=== PATIENT | female | born 1960 | race Caucasian/White ===

== ENCOUNTER → 2017-10-22 10:50 | Outpatient (CLI) | payer OTHER, SELFPAY ==
--- NOTE | 2017-10-22 10:51 | MM_ITS ---
MM Dig screening mamm BI w/CAD ORDERING PHYSICIAN : Joce Gutierrez MD PATIENT AGE: 56 years GENDER: Female COMPARISON: January 2016, June 2013, November 2010 INDICATION: ITS.REASON: Screening TECHNIQUE: Standard CC and MLO images were obtained. R2 CAD reviewed. FINDINGS: . Moderate scattered fibroglandular elements moderately dense heterogeneous breast. With similar architecture. No significant new findings. No dominant mass nor suspicious calcifications. RIGHT BREAST: Overall architecture is fairly stable. There are some additional areas of calcification at the deep right breast. These are fairly punctate with breathing seen at the posterior right breast labeled a most notable on the cc view. Most likely reflecting adenosis is a seem to be scattered on the MLO view . However given these calcifications become more evident since prior studies a would suggest a magnification spot view CC and MLO of these areas to better delineate and characterize Is also small area labeled B at the deep breast on MLO view which I believe is merely summation shadow and can be be addressed on these follow-up additional views as well LEFT BREAST:No change in the left breast. Follow-up in one year ----IMPRESSION: ----- 1. Right breast. Small grouping of calcifications deep right breast Labeled A.-most likely reflecting benign adenosis but would benefit from magnification spot views.. Other tiny very faint barely perceptible calcifications seen elsewhere scattered elsewhere deep right breast likely early adenosis calcifications as well Small area of density labeled B deep right breast on MLO view most likely summation shadow but should also be addressed these follow-up spot images as well 2. Left breast. Stable. Follow-up in one year BI-RADS Category: 0 Need Additional Imaging Evaluaiton. RECOMMENDED FOLLOW-UP: IMM - IMMEDIATE FOLLOW-UP RECOMMENDED Magnification Spot views right breast (A letter has been sent to the patient regarding results of the study.)
== END ==
PROVIDERS: PCP Internal Medicine Adolescent Medicine; Visit Provider Obstetrics & Gynecology
DX: Z12.31 Encounter for screening mammogram for malignant neoplasm of breast (principal)
CPT/HCPCS: 77067

== ENCOUNTER → 2017-11-05 12:45 | Outpatient (CLI) | payer OTHER, SELFPAY ==
--- NOTE | 2017-11-05 12:47 | MM_ITS ---
MM Dig mamm DX unilat RT CAD INDICATION: Follow-up abnormal mammogram ORDERING PHYSICIAN: Joce Gutierrez MD PATIENT AGE: 57 years COMPARISON: 10/22/2017, 02/12/2016 TECHNIQUE: Magnification views FINDINGS: The asymmetric density in the deep aspect of the right breast does appear to compress out on the focal spot compression view. There is a cluster of calcifications once again noted in the deep central aspect of the right breast. These are indeterminate. These are not highly suspicious and may very well represent adenosis. Suggest attempted stereotactic biopsy. IMPRESSION: Mildly suspicious cluster of calcifications in the central deep aspect of the right breast BI-RADS Category: 4 Suspicious Abnormality-Biopsy Considered RECOMMENDED FOLLOW-UP: BIO - BIOPSY RECOMMENDED (A letter has been sent to the patient regarding results of the study.)
== END ==
PROVIDERS: PCP Internal Medicine Adolescent Medicine; Visit Provider Obstetrics & Gynecology
DX: R92.8 Other abnormal and inconclusive findings on diagnostic imaging of breast (principal)
CPT/HCPCS: 77065

== ENCOUNTER → 2017-12-30 09:37 | Outpatient (CLI) | payer OTHER, SELFPAY ==
--- NOTE | 2017-12-30 | MM_ITS ---
MM stereotactic loc RT, MM Dig mamm DX unilat RT CAD ORDERING PHYSICIAN: Joce Gutierrez MD PATIENT AGE: 57 years Comparison: 11/05/2017 Limited focused H&P: HISTORY: Breast calcifications in the central aspect of the right breast PROCEDURE: The patient was placed on the stereotactic table and the abnormality was localized in the most appropriate projection. The breast was prepped in the routine manner, with sterile prep and the overlying skin anesthetized. A 3 to 4 mm skin incision was performed and the 9 gauge sorus vacuum-assisted core biopsy needle was advanced to the region of the calcification. Pre- and post fire images were obtained. After adequate positioning relative to the calcifications was ensured, multiple biopsies were obtained in the region of the calcifications specifically. The core biopsies obtained were sent for specimen mammography. After the calcifications were indeed identified on the specimen mammogram, the procedure was terminated. The patient tolerated the procedure well without complications. A tiny titanium nonferromagnetic MicroMark was positioned through the mammotome needle into the biopsy site. Pathology: Focal atypical ductal hyperplasia within a background of proliferative fibrocystic change. Intraluminal calcifications. Negative for in situ or invasive carcinoma IMPRESSION: Successful stereotactic vacuum-assisted core biopsy of the Right breast calcifications showing focal atypical ductal hyperplasia.. Excisional biopsy is suggested. SPECIMEN RADIOGRAPH: The mammographically evident calcifications from the prior study are currently evident within the Jeffrey dish and within the specimens obtained during mammotome procedure. This is considered an adequate specimen and the procedure was terminated. IMPRESSION: Successful removal of described breast calcifications. Recommendations: Surgical consult and excisional biopsy in patients with atypical ductal hyperplasia Right BREAST MAMMOGRAM: Compared to the prior study, the previously noted calcification have been removed. A small MicroMark clip was inserted into the region of the calcifications in the central aspect of the right breast. There is evidence of soft tissue changes in the region of the biopsy was soft tissue gas and edema. IMPRESSION: 1. Adequate placement of the MicroMark clip postbiopsy. 2. Postbiopsy changes within the right breast.
== END ==
PROVIDERS: PCP Internal Medicine Adolescent Medicine; Visit Provider Obstetrics & Gynecology
DX: R92.8 Other abnormal and inconclusive findings on diagnostic imaging of breast (principal)
CPT/HCPCS: 19081; 77065

== ENCOUNTER → 2018-03-22 09:44 | Outpatient (CLI) | payer OTHER, SELFPAY ==
[2018-03-22 10:01] LABS: Basophils # 0.1 K/mm3 (0-0.2); Basophils % 0.8 % (0.1-2.0); Eosinophils # 0.1 K/mm3 (0.0-0.4); Eosinophils % 2.3 % (0.1-12.0); Lymphocytes # 1.8 K/mm3 (0.7-4.5); Lymphocytes % 29.5 % (10-50); Mean Corpuscular HGB Conc 34.2 g/dL (31.8-35.4); Mean Corpuscular Hemoglobin 28.9 pg (27.0-31.2); Mean Corpuscular Volume 84.6 fl (81-99); Mean Platelet Volume 7.5 fl (7.4-10.4); Monocytes # 0.3 K/mm3 (0.1-1.0); Monocytes % 4.9 % (1.7-9.3); Neutrophils # 3.8 K/mm3 (1.8-7.8); Neutrophils % 62.6 % (37.0-80.0); Platelet Count 255 K/mm3 (142-424); Red Cell Distribution Width 13.1 % (11.5-17.5); White Blood Count 6.1 K/mm3 (4.8-10.8)
[2018-03-22 10:49] LABS: Anion Gap 19.6 mEq/L (5-15); Blood Urea Nitrogen 11 mg/dL (7-18); Calcium 8.8 mg/dL (8.5-10.1); Carbon Dioxide 21 mmol/L (21.0-32.0); Chloride 103 mmol/L (98-107); Creatinine,Serum 0.78 mg/dL (0.55-1.02); Estimated Glomerular Filt Rate 76 ml/min (>60); GFR (African American) 92 ML/MIN (>60); Glucose 233 mg/dL (74-106); Potassium 3.6 mmoL/L (3.5-5.1); Sodium 140 mmol/L (136-145)
== END ==
PROVIDERS: Visit Provider Surgery
DX: N60.91 Unspecified benign mammary dysplasia of right breast (principal)
CPT/HCPCS: 36415; 80048; 85025; 93005

== ENCOUNTER 2018-03-25 08:28 | Observation (INO) ==
--- NOTE | 2018-03-25 09:26 | Progress Note ---
[facility] Anesthesia Checklist - Patient Identification Patient Identification: Arm Band, Verbal (Name & ) - Structural Data Admitted From: Home Planned Operative Procedure/s: lumpectomy Consent for Planned Operative Procedure(s) Verified: Yes Verified Documents: History and Physical - NPO Status Verified Time NPO: 00:00 - Additional verifications Patient : No Anesthesia Reactions: No Hx Blood Transfusions: No Blood Transfusion Reaction: No Cephalosporin Allergy: No Previous Colonoscopy: No - Cardiovascular Assessment Heart Sounds: S1 & S2 Pulse Strength: Baseline Pulse Rhythm: Regular Peripheral Edema: No - Airway Assessment C-Spine Mobility Assessed: Yes TMJ Mobility Assessed: Yes Dentition: Good Dentition - Neurological Assessment Level of Consciousness: Awake, Alert, Appropriate Hx Seizures: No Numbness or tingling in extremities: No - Anesthesia Plan Anesthesia Risk discussed: Yes Anesthesia Plan: Verified ASA Class: II Anesthesia Type: General [facility] History I have reviewed the patient's past medical history: Yes Medical History: Denies:: Cancer, Diabetes Mellitus Type 1, Diabetes Mellitus Type 2, Internal Pacemaker, MRSA, Seizures Have you ever received a pneumonia vaccine?: No Have you received a flu vaccine this season?: Yes Other Medical History: Reports: Other. Denies: Blood Transfusion Reaction Laterality Cases: Right: Breast Biopsy Other Surgeries: Yes: No Previous Surgery, Other. No: Pacemaker Amputation: No Fractures: No - *Social History Educational Level: Completed High School Smoking Status: Never smoker Alcohol Intake: never Alcohol Intake Frequency:: other Substance Use Type: denies use Occupational Status: employed Household Members: spouse Travel in the last 8 weeks: None - Psychiatric History Expresses thoughts of harming self/others: None Suicide Plan Description: No Plan *Family Hx:: Cancer WEIGHT REDUCTION SPECIALIST history: Non-contributory
--- NOTE | 2018-03-25 12:15 | Operative Note ---
Date of procedure: 03/25/18 Pre-op Diagnosis:: Right breast atypical ductal hyperplasia Post-op Diagnosis:: Same Procedure performed:: Needle-localized excisional biopsy of right breast lesion (atypical ductal hyperplasia) Surgeon:: Azar Hay MD Anesthesia: LMA Estimated blood loss (mL): 15 Operative findings:: Complete excision of target lesion confirmed radiographically Operative note:: After informed consent was obtained the patient was taken to the radiology suite where a localization needle was placed. Please see separate radiology report for detail. She was then transferred to the operating room and placed in the supine position. General anesthesia with laryngeal mask airway was achieved. The right breast was prepped and draped in a sterile fashion. Additional alcohol preparation of the localization needle was accomplished. After infiltration of local anesthetic a slightly curvilinear incision was made at the site of the localization needle exit. The deep subcutaneous tissue was sharply dissected as the target was approached. The surrounding tissue was sharply excised with Metzenbaum scissors. The lesion was excised in toto and passed off for pathologic evaluation after being marked for margin. Dyed suture was utilized to nilay the superficial and deep margins (short superficial/long deep). Non-dyed suture was then utilized to nilay the superior and lateral margins (short superior/long lateral). Electrocautery was utilized to achieve hemostasis. The deep subcutaneous tissue was reapproximated with non-dyed 0 Vicryl and skin was closed with 4-0 Monocryl in a running subcuticular fashion. Steri-Strips were applied. The patient's anesthetic agents were reversed and she was transferred to recovery after removal of her laryngeal mask airway. Specimen radiographs were evaluated and appropriate excision of the target was confirmed. Condition: stable Disposition: PACU Specimens:: Right breast lesion Complications:: No immediate
--- NOTE | 2018-03-25 12:17 | Progress Note ---
[facility] Anesthesia Record Part I Intake, IV Amount: 750 Estimated blood loss (mL): 10 Urine output (mL): 0 Blood Products used (#): none Blood Pressure: 127/70 SaO2: 94 Pulse Rate: 98 Respiratory Rate: 20 Temperature: 98.0 F Patient is:: Drowsy, Stable Stable to PACU at:: 12:16
--- NOTE | 2018-03-25 12:18 | Progress Note ---
[facility] Anesthesia Record Part II Discharge Time: 12:46 Destination: Surgical Day Care (OP Surgery) PACU nurse assessment reviewed?: Yes Patient Condition:: Good Anesthesia Complications:: None Swallowing reflex intact?: Yes Cyanosis?: No
[2018-03-26 06:13] LABS: Basophils % 0.2 % (0.1-2.0); Eosinophils % 0.4 % (0.1-12.0); Hematocrit 37.8 % (37.0-47.0); Hemoglobin 12.7 g/dL (12.2-16.2); Lymphocytes # 2.1 K/mm3 (0.7-4.5); Lymphocytes % 21.7 % (10-50); Mean Corpuscular HGB Conc 33.7 g/dL (31.8-35.4); Mean Corpuscular Hemoglobin 28.9 pg (27.0-31.2); Mean Corpuscular Volume 85.8 fl (81-99); Mean Platelet Volume 7.8 fl (7.4-10.4); Monocytes # 0.6 K/mm3 (0.1-1.0); Monocytes % 6.5 % (1.7-9.3); Neutrophils % 71.2 % (37.0-80.0); Platelet Count 244 K/mm3 (142-424); Red Blood Count 4.41 M/mm3 (4.20-5.40); Red Cell Distribution Width 13.3 % (11.5-17.5); White Blood Count 9.8 K/mm3 (4.8-10.8)
--- NOTE | 2018-03-26 06:31 | Progress Note ---
Subjective Patient reports: feels better Exam Vital signs and Labs for Last 24 Hours: Temp Pulse Resp BP Pulse Ox 97.9 F 86 16 103/51 L 96 03/26/18 04:00 03/26/18 04:00 03/26/18 04:00 03/26/18 04:00 03/26/18 04:00 Laboratory Results - last 24 hr 03/26/18 05:45: WBC 9.8, RBC 4.41, Hgb 12.7, Hct 37.8, MCV 85.8, MCH 28.9, MCHC 33.7, RDW 13.3, Plt Count 244, MPV 7.8, Neut % (Auto) 71.2, Lymph % (Auto) 21.7, Petroleum % (Auto) 6.5, Eos % (Auto) 0.4, Baso % (Auto) 0.2, Neut # (Auto) 7.0, Lymph # (Auto) 2.1, Petroleum # (Auto) 0.6, Eos # (Auto) 0.0, Baso # (Auto) 0.0 I & O for Last 24 hours: Intake & Output 03/23/18 03/24/18 03/25/18 03/26/18 11:59 11:59 11:59 11:59 Intake Total 850 / 850 Balance 850 / 850 Weight 348 lb 5.286 oz 155 lb 6 oz - Constitutional no acute distress - Routine Chest/Breast/Axilla Exam Comments: no expansion of hematoma - *Routine Respiratory Exam Absent: respiratory distress Progress Note: A&P (1) Atypical ductal hyperplasia of right breast Status: Acute Assessment and plan: Daughter hematoma acutely developing after ambulation postoperatively. Currently stable and no sign of hematoma expansion. Advance diet Increase ambulation Likely discharge later today if she remains stable Current Visit: Yes
--- NOTE | 2018-03-26 07:50 | Pharmacy Consult Notes ---
[facility] Pharmacy VTE Monitoring - Patient Demographics Admission date: 03/25/18 Report Date: 03/26/18 Time: 07:50 Allergies/Adverse Reactions: Patient Allergies No Known Allergies Allergy (Verified 03/17/18 10:35) Height: 1.63 m Weight: 70.477 kg Patient Problems: Current Active Problems Atypical ductal hyperplasia of right breast (Acute) - VTE Risk Labs: VTE Related Lab Results Hgb 12.7 g/dL (12.2-16.2) 03/26/18 05:45 Hct 37.8 % (37.0-47.0) 03/26/18 05:45 Plt Count 244 K/mm3 (142-424) 03/26/18 05:45 Was VTE Risk Assessment Performed: Yes VTE Score: 2 - Prophylaxis VTE Prophylaxis Ordered?: Yes Types of VTE Prophylaxis: IPCS Thigh High Location of Applied Device: Bilateral Lower Extremeties - VTE Diagnosis Confirmed Treatment or plan recommended: Continue Current Treatment
--- NOTE | 2018-03-26 14:49 | Discharge Summary ---
General - General Admission date:: 03/25/18 Discharge date: 03/26/18 HPI HPI: This is a 57-year-old female who underwent needle localized excisional biopsy of right breast lesion (atypical ductal hyperplasia). She initially progressed well in the immediate postoperative timeframe. Prior to discharge she began to increase her ambulation and developed a moderate right breast hematoma. Immediate compression was successful and there was no sign of ongoing expansion. She was admitted for ongoing observation. Hospital Course Hospital Course: The patient convalesced well. She had no sign of ongoing blood loss. She remained afebrile with stable normal vital signs and was deemed appropriate for discharge on the afternoon of postoperative day 1. Objective Vital signs: Temp Pulse Resp BP Pulse Ox 97.9 F 88 16 121/64 100 03/26/18 12:00 03/26/18 12:00 03/26/18 12:00 03/26/18 12:00 03/26/18 12:00 no acute distress - *Routine HEENT Exam Head: Present: normocephalic, atraumatic - *Routine Neck Exam Present: full ROM - Routine Chest/Breast/Axilla Exam Comments: Moderate right breast hematoma postoperatively with no sign of active expansion. - *Routine Respiratory Exam Absent: respiratory distress - *Routine Cardiovascular Exam Present: RRR - *Routine Abdominal Exam Present: soft - *Routine Extremities Exam Present: full ROM - Routine Back/Spine/Pelvis Exam Back/Spine: Present: full ROM - *Routine Skin Exam Present: intact - *Routine Neurological Exam Present: alert, oriented X3 - Routine Psychiatric Exam Present: normal affect Results Labs on day of discharge: Labs from last 24 hours 03/26/18 05:45 WBC 9.8 RBC 4.41 Hgb 12.7 Hct 37.8 MCV 85.8 MCH 28.9 MCHC 33.7 RDW 13.3 Plt Count 244 MPV 7.8 Neut % (Auto) 71.2 Lymph % (Auto) 21.7 Robertson % (Auto) 6.5 Eos % (Auto) 0.4 Baso % (Auto) 0.2 Neut # (Auto) 7.0 Lymph # (Auto) 2.1 Robertson # (Auto) 0.6 Eos # (Auto) 0.0 Baso # (Auto) 0.0 DS: Diagnosis - Discharge Diagnosis (1) Atypical ductal hyperplasia of right breast Status: Acute Problem details: Delayed postoperative hematoma with no sign of ongoing blood loss/expansion. Discharge Plan - Patient Discharge Instructions ACTIVITY: Ambulate as tolerated DIET: advance to your usual diet - Follow up Plan Follow up with: Azar Hay MD [Staff Physician] - 1 week Disposition: Home, Self-Fpc Medications: Home Medications Medication Instructions Recorded Confirmed Type biotin 1 mg capsule 1 mg PO DAILY 06/04/17 03/26/18 History black cohosh 200 mg capsule 200 mg PO DAILY 06/04/17 03/26/18 History cholecalciferol (vitamin D3) 400 400 unit PO DAILY 06/04/17 03/26/18 History unit capsule lansoprazole 15 mg capsule,delayed 30 mg PO BID 06/04/17 03/25/18 History release tqqphblsydtx-Aa-erpy-minerals 1 tab PO DAILY 06/04/17 03/25/18 History tablet zinc gluconate 100 mg tablet 100 mg PO DAILY tab 06/04/17 03/26/18 History Estrogen,Con/M-Progest Acet 1 tab PO DAILY 03/25/18 03/26/18 History [Prempro 0.625-2.5 mg Tablet] Prescriptions/Medication Reconciliation: Continue luutvftvhymx-Zt-asth-minerals tablet 1 tab PO DAILY biotin 1 mg capsule 1 mg PO DAILY cholecalciferol (vitamin D3) 400 unit capsule 400 unit PO DAILY lansoprazole 15 mg capsule,delayed release 30 mg PO BID zinc gluconate 100 mg tablet 100 mg PO DAILY tab black cohosh 200 mg capsule 200 mg PO DAILY Estrogen,Con/M-Progest Acet [Prempro 0.625-2.5 mg Tablet] 1 tab PO DAILY
== END 2018-03-26 15:28 | disposition home or self-care (01) ==
LOC: OR 08:28 → 2ND 16:11 → INTOOBSV 16:11
PROVIDERS: ADMIT Surgery; ATTEND Surgery
CPT/HCPCS: 19281; 36415; 85025; 96374; G0378; J2405

== ENCOUNTER → 2019-04-07 09:43 | Outpatient (CLI) | payer OTHER, SELFPAY ==
--- NOTE | 2019-04-07 09:46 | MM_ITS ---
PROCEDURE: MM DIG SCREENING MAMM BI W/CAD CLINICAL INDICATION: SCREENING There is a history of breast cancer patient's maternal cousin. There has been a previous biopsy right breast for benign disease. COMPARISON: DXRT MM Dig mamm DX unilat RT CAD from 11/05/2017 STRT MM stereotactic loc RT from 12/30/2017 NLRT MM needle loc RT from 03/25/2018 TECHNIQUE: Standard CC and MLO images were obtained. Jessica images were performed. FINDINGS: Moderate scattered fibroglandular densities are seen in both breasts. There is somewhat irregular asymmetric fibroglandular densities upper central portion right breast at the previous biopsy site. Prominent post biopsy scarring is seen upper central portion right breast best demonstrated on the jessica images. There is no new or suspicious lesion in either breast and no suspicious microcalcifications. IMPRESSION: Moderate breast density with prominent post biopsy scarring right breast BI-RAD Category: 2 Benign Finding(s) FOLLOW-UP: 1YR 1 Year Follow-up (A letter has been sent to the patient regarding results of the study.) Dictated by: Dr. Michel Alejandro MD 04/12/2019 09:[address] Michel Alejandro MD in [place] 04/12/2019 09:02
== END ==
PROVIDERS: PCP Internal Medicine Adolescent Medicine; Visit Provider Internal Medicine Adolescent Medicine
DX: Z12.31 Encounter for screening mammogram for malignant neoplasm of breast (principal)
CPT/HCPCS: 77063; 77067

== ENCOUNTER → 2020-10-16 15:29 | Outpatient (CLI) | payer OTHER, SELFPAY ==
[2020-10-16 16:14] LABS: Basophils # 0.1 K/mm3 (0-0.2); Basophils % 0.9 % (0.1-2.0); Eosinophils # 0.2 K/mm3 (0.0-0.4); Eosinophils % 2.2 % (0.1-12.0); Hemoglobin 15.8 g/dL (12.2-16.2); Lymphocytes % 28.1 % (10-50); Mean Corpuscular HGB Conc 33.7 g/dL (31.8-35.4); Mean Corpuscular Hemoglobin 28.7 pg (27.0-31.2); Mean Corpuscular Volume 85.1 fl (81-99); Mean Platelet Volume 8.1 fl (7.4-10.4); Monocytes # 0.4 K/mm3 (0.1-1.0); Monocytes % 5.1 % (1.7-9.3); Neutrophils # 4.5 K/mm3 (1.8-7.8); Neutrophils % 63.6 % (37.0-80.0); Platelet Count 213 K/mm3 (142-424); Red Blood Count 5.52 M/mm3 (4.20-5.40); Red Cell Distribution Width 13.2 % (11.5-17.5)
[2020-10-16 17:05] LABS: Alanine Aminotransferase 45 U/L (12-78); Albumin Level 4.6 g/dl (3.5-5.0); Albumin/Globulin Ratio 1.7 (1.1-1.8); Alkaline Phosphatase 127 U/L (38-126); Anion Gap 18.1 mEq/L (5-15); Aspartate Amino Transferase 38 U/L (14-36); Blood Urea Nitrogen 12 mg/dl (7-17); Calcium 9.2 mg/dl (8.4-10.2); Carbon Dioxide 25 mmol/L (22.0-30.0); Chloride 100 mmol/L (98-107); Estimated Glomerular Filt Rate 163 ml/min (>60); GFR (African American) 197 ML/MIN (>60); Globulin 2.7 g/dL (1.3-3.2); Glucose 378 mg/dl (74-100); Potassium 4.1 mmoL/L (3.5-5.1); Sodium 139 mmol/L (136-145); Total Protein,Serum 7.3 g/dl (6.3-8.2)
[2020-10-16 17:36] LABS: Thyroid Stimulating Hormone 0.21 uIU/mL (0.465-4.68)
[2020-10-16 18:06] LABS: Vitamin B12 > 1000 pg/mL (239-931)
[2020-10-18 12:40] LABS: Hemoglobin A1C 11.1 % (4.0-6.0)
== END ==
PROVIDERS: Visit Provider Nurse Practitioner Family
DX: R42 Dizziness and giddiness (principal); R53.83 Other fatigue
CPT/HCPCS: 36415; 80053; 82306; 82607; 83036; 84443; 85025

== ENCOUNTER 2020-11-12 07:57 | Outpatient (CLI) | payer OTHER, SELFPAY ==
[2020-11-12] VITALS (8 sets, daily range): BP systolic 110–134; BP diastolic 71–87; PULSE 87–95; RESP 16–18; TEMP 37.1–37.2; O2SAT 95–98
== END 2020-11-12 10:18 | disposition home or self-care (01) ==
PROVIDERS: PCP Internal Medicine Adolescent Medicine; Visit Provider Nurse Practitioner Family
DX: U07.1 COVID-19 (principal)
CPT/HCPCS: 96365

== ENCOUNTER → 2020-12-18 07:22 | Outpatient (CLI) | payer OTHER, SELFPAY ==
[2020-12-18 08:58] LABS: Hemoglobin A1C 6.8 % (4.0-6.0)
[2020-12-18 09:38] LABS: Alanine Aminotransferase 44 U/L (12-78); Albumin Level 4.6 g/dl (3.5-5.0); Albumin/Globulin Ratio 1.6 (1.1-1.8); Alkaline Phosphatase 66 U/L (38-126); Anion Gap 15.4 mEq/L (5-15); Aspartate Amino Transferase 40 U/L (14-36); Bilirubin,Total 1.2 mg/dl (0.2-1.3); Blood Urea Nitrogen 15 mg/dl (7-17); Calcium 9.7 mg/dl (8.4-10.2); Carbon Dioxide 24 mmol/L (22.0-30.0); Chloride 107 mmol/L (98-107); Estimated Glomerular Filt Rate 162 ml/min (>60); GFR (African American) 196 ML/MIN (>60); Globulin 2.9 g/dL (1.3-3.2); Glucose 135 mg/dl (74-100); Potassium 4.4 mmoL/L (3.5-5.1); Sodium 142 mmol/L (136-145); Total Protein,Serum 7.5 g/dl (6.3-8.2)
[2020-12-18 09:56] LABS: Free Thyroxine Index 2.9 ug/dL (5.93-13.13); T4 (Thyroxine) 10.4 ug/dl (5.53-11.0); Triiodothryronine (T3) Uptake 28 % (23.5-40.5)
[2020-12-18 10:10] LABS: Thyroid Stimulating Hormone 2.82 uIU/mL (0.465-4.68)
[2020-12-19 09:14] LABS: Thyroid Peroxidase Antibodies <8 IU/mL (0-34)
== END ==
PROVIDERS: Visit Provider Internal Medicine Adolescent Medicine
DX: E11.9 Type 2 diabetes mellitus without complications (principal); E05.90 Thyrotoxicosis, unspecified without thyrotoxic crisis or storm
CPT/HCPCS: 36415; 80053; 83036; 84436; 84443; 84479; 86376

== ENCOUNTER → 2021-02-01 17:51 | Outpatient (CLI) | payer OTHER, SELFPAY | PROVIDERS: Visit Provider Internal Medicine Adolescent Medicine | DX: R30.0 Dysuria (principal) | CPT/HCPCS: 87086; 87186 ==

== ENCOUNTER → 2022-01-02 15:56 | Outpatient (CLI) | payer OTHER, SELFPAY ==
--- NOTE | 2022-01-02 16:00 | MM_ITS ---
PROCEDURE INFORMATION: Exam: MG Bilateral Screening 3D Mammography Exam date and time: 01/02/2022 3:55 PM Age: 61 years old Clinical indication: Screening examination. History of right excisional biopsy. Her maternal cousin had breast cancer. TECHNIQUE: Imaging protocol: Bilateral Screening tomosynthesis and 2D mammography including computer-aided detection (CAD) when performed. COMPARISON: 1. MG MM DIG SCREENING MAMM BI W/CAD 04/07/2019 9:48 AM 2. MG NLRT MM needle loc RT 03/25/2018 9:37 AM 3. MG STRT MM stereotactic loc RT 12/30/2017 11:11 AM 4. MG DXRT MM Dig mamm DX unilat RT CAD 11/05/2017 1:15 PM FINDINGS: MAMMOGRAPHY: Breast composition: There are scattered areas of fibroglandular density. Mass: None. Architectural distortion: None. Calcifications: No suspicious calcifications. Asymmetric density: Prominent focal asymmetry in the upper inner right breast, which corresponds to the location of biopsy and surgical scar from 12/30/2017. Skin thickening: None. Axillary adenopathy: None. IMPRESSION: No mammographic evidence of malignancy. Annual screening is recommended unless otherwise clinically indicated. ASSESSMENT: BI-RADS Category 2: Benign
== END ==
PROVIDERS: PCP Internal Medicine Adolescent Medicine; Visit Provider Internal Medicine Adolescent Medicine
DX: Z12.31 Encounter for screening mammogram for malignant neoplasm of breast (principal)
CPT/HCPCS: 77063; 77067

== ENCOUNTER → 2023-01-15 09:04 | Outpatient (CLI) | payer OTHER, SELFPAY ==
--- NOTE | 2023-01-15 09:08 | XR_ITS ---
FINAL REPORT CLINICAL HISTORY: POST MENOPAUSAL, osteoporosis screening COMPARISON: None FINDINGS: Using L1-4, the bone mineral density of the spine is 0.061 g/cm2, corresponding to T-score of 0.1, within normal limits. Using the left hip, the bone mineral density of the femoral neck is 0.922 g/cm2, corresponding to a T-score of -0.2, within normal limit. Using the right hip, the bone mineral density of the femoral neck is 0.905 g/cm2, corresponding to a T-score of 0.5, within normal limits. FRAX not reported because all T-scores at or above-1.0. NOTE: T-score: Standard deviation compared with peak bone mass of young adult mean. *Following the recommendations of the International Society of Bone densitometry, classification of hip BMD is based on the lower of two T-scores; total hip or femoral neck. IMPRESSION: Normal bone mineral density of the lumbar spine and hips. Reviewed, Interpreted and Dictated by Gabriel Ramey III, MD Transcribed by Chelo Palmer Authenticated and [facility]
== END ==
PROVIDERS: PCP Internal Medicine Adolescent Medicine; Visit Provider Internal Medicine Adolescent Medicine
DX: Z78.0 Asymptomatic menopausal state (principal)
CPT/HCPCS: 77080

== ENCOUNTER 2024-02-15 15:38 | Outpatient (CLI) | payer OTHER, SELFPAY ==
--- NOTE | 2024-02-15 15:43 | MM_ITS ---
PROCEDURE INFORMATION: Exam: MG Bilateral Screening 3D Mammography Exam date and time: 02/15/2024 3:33 PM Age: 63 years old Clinical indication: Screening examination TECHNIQUE: Imaging protocol: Bilateral Screening tomosynthesis and 2D mammography including computer-aided detection (CAD) when performed. COMPARISON: 1. MG MM DIG SCREENING MAMM BI W/CAD 01/02/2022 3:55 PM 2. MG MM DIG SCREENING MAMM BI W/CAD 04/07/2019 9:48 AM FINDINGS: MAMMOGRAPHY: Breast composition: There are scattered areas of fibroglandular density. Mass: None. Architectural distortion: Prior right breast biopsy changes are stable. Calcifications: No suspicious calcifications. Asymmetric density: None. Skin thickening: None. Axillary adenopathy: None. IMPRESSION: No mammographic evidence of malignancy. Annual screening is recommended unless otherwise clinically indicated. ASSESSMENT: BI-RADS Category 2: Benign.
== END 2024-02-15 23:59 | disposition home or self-care (01) ==
LOC: RAD 15:39
PROVIDERS: PCP Internal Medicine Adolescent Medicine; Visit Provider Nurse Practitioner Family
DX: Z12.31 Encounter for screening mammogram for malignant neoplasm of breast (principal)
CPT/HCPCS: 77063; 77067